=== PATIENT | female | born 1990 | race Hispanic/Latino ===

== ENCOUNTER 2017-11-06 06:10 | Emergency (ER) | payer BC ==
[2017-11-06 06:10] VITALS: BMI 32.1
[2017-11-06 06:15] VITALS: TEMP 98.3
[2017-11-06] MEDS ORDERED: DiphenhydrAMINE 50 mg/ml Inj IVP STA (06:25)
--- NOTE | 2017-11-06 06:25 | C.PDOC ---
History Of Present Illness Patient woke up with both her upper eyelids swollen, almost completely closed. Unknown etiology. Denies any new things -makeup, meds, foods. Speaking in complete sentences. Tolerating po and own secretions Time Seen by Provider: 11/06/17 06:24 Chief Complaint (Nursing): Allergic Reaction History Per: Patient History/Exam Limitations: no limitations Onset/Duration Of Symptoms: Hrs Current Symptoms Are (Timing): Still Present Context: Other Possible Cause: Unknown Associated Symptoms: Swelling. denies: Trouble Swallowing, Dizziness, Itching Home/EMS Treatment: None Severity: Moderate Recent travel outside of the [place]: No Additional History Per: Family Past Medical History Reviewed: Historical Data, Nursing Documentation, Vital Signs Vital Signs: Last Vital Signs Temp 98.3 F 11/06/17 06:13 Pulse 72 11/06/17 06:13 Resp 22 11/06/17 06:13 BP 107/69 11/06/17 06:13 Pulse Ox 100 11/06/17 06:25 - Medical History PMH: Migraine Denies: Chronic Kidney Disease Family History: States: No Known Family Hx - Social History Hx Tobacco Use: No Hx Alcohol Use: No Hx Substance Use: No - Immunization History Hx Tetanus Toxoid Vaccination: No Hx Influenza Vaccination: Yes Hx Pneumococcal Vaccination: No Review Of Systems Constitutional: Negative for: Fever, Chills, Sweats Eyes: Positive for: Other (eyelid edema) ENT: Negative for: Throat Pain, Throat Swelling Cardiovascular: Negative for: Chest Pain Respiratory: Negative for: Shortness of Breath Skin: Positive for: Other (edema b/l eyelids, itchy) Psych: Negative for: Anxiety Physical Exam - Physical Exam Appears: Non-toxic Skin: Warm, Dry Eye(s): bilateral: Other (upper eyelid edema) Nose: Normal Oral Mucosa: Moist Tongue: Normal Appearing Lips: Normal Appearing Throat: No Erythema, No Exudate, No Drooling Neck: Supple Chest: Symmetrical Cardiovascular: Rhythm Regular Respiratory: No Rales, No Rhonchi, No Wheezing Neurological/Psych: Oriented x3 Gait: Steady ED Course And Treatment O2 Sat by Pulse Oximetry: 100 Pulse Ox Interpretation: Normal Disposition Counseled Patient/Family Regarding: Studies Performed, Diagnosis - Disposition Disposition Time: 06:25 Condition: FAIR Forms: LastRoom (Occitan) - Clinical Impression Clinical Impression: Allergic reaction, Eyelid edema Physician Patient Turnover Patient Signed Over To: Maine Taylor Handoff Comments: pending re-eval and dispostion
[2017-11-06] MEDS ORDERED: DiphenhydrAMINE 50 mg/ml Inj ONE (06:26)
[2017-11-06 08:39] VITALS: BP 98/67; PULSE 60; RESP 18; O2SAT 99
== END 2017-11-06 08:55 | disposition home or self-care (01) ==
LOC: C.ER 06:10
DX: T78.40XA Allergy, unspecified, initial encounter (principal); H02.844 Edema of left upper eyelid; H02.841 Edema of right upper eyelid
CPT/HCPCS: 96374; 96375; 99284; J1200; J2930

== ENCOUNTER 2017-11-09 11:01 | Day surgery (SDC) | payer BC ==
[2017-11-04 10:25] VITALS: BMI 32.1
[2017-11-09] MEDS ORDERED: Propofol 10 mg/ml Inj (20 ML) ONE ×2 (15:11→16:43)
[2017-11-09] MEDS ORDERED: Midazolam 2 MG/2 ML VIAL ONE (15:11)
[2017-11-09] MEDS ORDERED: Neostigmine Methylsulfate 3mg/3ml Syringe IV ONE (16:42)
[2017-11-09] MEDS ORDERED: Lactated Ringer's 1,000 ML IV ONE ×2 (17:18→18:30)
[2017-11-09] MEDS ORDERED: Lactated Ringer's 1,000 ML IV SCH (17:30)
[2017-11-09] MEDS ORDERED: DiphenhydrAMINE 50 mg/ml Inj IVP STA (19:04)
[2017-11-09] MEDS ORDERED: DiphenhydrAMINE 50 mg/ml Inj IVP PRN (19:28)
[2017-11-09] MEDS: Lactated Ringer's 1,000 ML IV SCH (20:57)
[2017-11-10] MEDS: Lactated Ringer's 1,000 ML IV SCH (05:08)
[2017-11-10 10:02] VITALS: BP 104/69; PULSE 76; RESP 18; TEMP 98.1; O2SAT 100
--- NOTE | 2017-11-11 06:45 | OP ---
Copied To: Eloise Chang MD Attending MD: Eloise Chang MD PROCEDURE DATE: 11/09/2017 SURGEON: Eloise Chang MD LOCATION: [facility]. PREOPERATIVE DIAGNOSES: Pelvic pain, persistent right ovarian cyst. POSTOPERATIVE DIAGNOSES: Pelvic pain, persistent right ovarian cyst. OPERATIVE PROCEDURES: Diagnostic laparoscopy, right ovarian cystectomy. ANESTHESIA: GETA. FINDINGS: Atraumatic site of entry. All peritoneal surfaces appeared normal. Benign appearing but enlarged right ovary with cyst, mucinous in appearance. Normal-appearing appendix. Hemostasis at the end of the case. DESCRIPTION OF PROCEDURE: The patient was consented and taken to the OR where time-out was performed. She was placed in dorsal lithotomy position. After anesthesia was found to be adequate, she was prepped and draped in the usual sterile fashion. Olivas was placed in the bladder, and the sponge stick was used in the vagina to manipulate the uterus. Attention was then turned to the abdominal portion of the procedure. A Jeny direct entry was used to gain access to the abdomen. Findings were as above. The ovarian stroma was incised with scissors with monopolar cautery. The cyst was dissected and then removed. The ovarian cyst bed was cauterized using a [place] with monopolar cautery. After hemostasis was achieved, the pressure was decreased in the abdomen to ensure hemostasis. Otherwise, the pressure was maintained at 15 mmHg throughout the case. One 5-mm port in the right lower quadrant and two 5-mm ports were placed in the left lower quadrant under direct visualization. FloSeal was placed at the end of the case. The other side of the adnexa was normal in appearance. The gas was allowed to exsufflate. The abdominal incision was closed in a running fashion with Vicryl. The skin was closed with 3-0 Monocryl, Steri-Strips, and dressing. All counts were correct and all instruments were removed from the bladder and the vagina. SPECIMEN: Ovarian cyst. CONDITION: Stable for PACU. Eloise Chang MD
== END 2017-11-10 10:50 | disposition home or self-care (01) ==
LOC: C.SDS 11:01 → C.4M 19:22 → C.SDS 11-10 10:50
PROVIDERS: ATTEND Obstetrics & Gynecology
DX: N83.291 Other ovarian cyst, right side (principal); N94.9 Unspecified condition associated with female genital organs and menstrual cycle; N83.201 Unspecified ovarian cyst, right side
CPT/HCPCS: 36415; 58662; 86850; 86900; 86920; 88305; C2615; J0131; J1100; J1200; J1885; J2001; J2250; J2405; J2704; J2710; J3010; J7120

== ENCOUNTER 2017-12-12 22:10 | Emergency (ER) | payer BC ==
[2017-12-12 22:10] VITALS: BMI 32.1
[2017-12-12 22:19] VITALS: BP 115/75; PULSE 61; TEMP 98.3; O2SAT 100
[2017-12-12] MEDS ORDERED: methylPREDNISolone 125 MG in Sodium Chloride 0.9% 100 ML IV STA (22:34)
[2017-12-12] MEDS ORDERED: DiphenhydrAMINE 50 mg/ml Inj IVP STA (22:34)
[2017-12-12] MEDS ORDERED: DiphenhydrAMINE 50 mg/ml Inj ONE (22:43)
--- NOTE | 2017-12-12 23:45 | C.PDOC ---
History Of Present Illness 27 year old female presents to the ED c/o facial swelling and diffuse urticarial rash since yesterday, that got progressively worse today. Patient was seen in the ED 10/17 for the same symptoms, patient was also seen by e business specialist and had test done. Patient was given topical cream for his body and a solution for her face. Patient reports symptoms still recurrent and worsened. Patient denies fever, chills, SOB, tongue swelling, lip swelling, nausea, vomit. Time Seen by Provider: 12/12/17 22:23 Chief Complaint (Nursing): Allergic Reaction History Per: Patient History/Exam Limitations: no limitations Onset/Duration Of Symptoms: Days, Persistent Current Symptoms Are (Timing): Still Present Associated Symptoms: Skin Rash, Swelling Home/EMS Treatment: Other Severity: None Recent travel outside of the [place]: No Additional History Per: Patient Past Medical History Reviewed: Historical Data, Nursing Documentation, Vital Signs Vital Signs: Last Vital Signs Temp 98.3 F 12/12/17 22:15 Pulse 61 12/12/17 22:15 Resp 16 12/12/17 22:15 BP 115/75 12/12/17 22:15 Pulse Ox 100 12/12/17 22:15 - Medical History PMH: Migraine Denies: Chronic Kidney Disease Surgical History: No Surg Hx Family History: States: Unknown Family Hx - Social History Hx Tobacco Use: No Hx Alcohol Use: No Hx Substance Use: No - Immunization History Hx Tetanus Toxoid Vaccination: No Hx Influenza Vaccination: Yes Hx Pneumococcal Vaccination: No Review Of Systems Constitutional: Negative for: Fever, Chills ENT: Negative for: Mouth Swelling, Throat Swelling Respiratory: Negative for: Cough, Shortness of Breath Gastrointestinal: Negative for: Nausea, Vomiting Skin: Positive for: Rash Neurological: Negative for: Weakness, Numbness Physical Exam - Physical Exam Appears: Non-toxic, No Acute Distress Skin: Normal Color, Warm, Dry, Rash (diffuse urticarial rash, hives) Head: Atraumatic, Normacephalic, Swelling (bilateral infraorbital/maxillary area ) Eye(s): bilateral: Normal Inspection, PERRL, EOMI, Eyelid Inflammation ( bilateral upper eyelid edema) Ear(s): Bilateral: Normal Nose: No Discharge Oral Mucosa: Moist Tongue: No Swelling Lips: No Swelling Throat: Normal, No Erythema, No Exudate Neck: Normal ROM, Supple Chest: Symmetrical Cardiovascular: Rhythm Regular Respiratory: Normal Breath Sounds, No Rales, No Rhonchi, No Wheezing Extremity: Normal ROM, No Tenderness, No Swelling Neurological/Psych: Oriented x3, Normal Speech Gait: Steady ED Course And Treatment O2 Sat by Pulse Oximetry: 100 (ON RA) Pulse Ox Interpretation: Normal Progress Note: Plan: - Benadryl 25 mg IVP. - Pepcid 20 mg IVP. - Solumedrol 125 mg IVP. Patient is resting comfortably, tolerating PO, has no shortness of breath, has no intra-oral swelling, no stridor. Patient notes that pruritus has improved.. Patient was advised to avoid potential allergens, and to follow up with physician in 1-2 days. Disposition - Disposition - PA / MEDICAL SONOGRAPHER / Resident Statement MD/DO has reviewed & agrees with the documentation as recorded. - Scribe Statement The provider has reviewed the documentation as recorded by the Scribe Arcadio Arango All medical record entries made by the Scribe were at my direction and personally dictated by me. I have reviewed the chart and agree that the record accurately reflects my personal performance of the history, physical exam, medical decision making, and the department course for this patient. I have also personally directed, reviewed, and agree with the discharge instructions and disposition.
--- NOTE | 2017-12-12 23:47 | C.PDOC ---
History Of Present Illness 27 year old female presents to the ED c/o facial swelling and diffuse urticarial rash since yesterday, that got progressively worse today. Patient was seen in the ED 10/17 for the same symptoms, patient was also seen by commissioning specialist and had test done. Patient was given topical cream for his body and a solution for her face. Patient reports symptoms still recurrent and worsened. Patient denies fever, chills, SOB, tongue swelling, lip swelling, nausea, vomit. Time Seen by Provider: 12/12/17 22:23 Chief Complaint (Nursing): Allergic Reaction History Per: Patient History/Exam Limitations: no limitations Onset/Duration Of Symptoms: Days Current Symptoms Are (Timing): Still Present Possible Cause: Unknown Associated Symptoms: Skin Rash, Swelling Home/EMS Treatment: Other Recent travel outside of the [place]: No Additional History Per: Patient Past Medical History Reviewed: Historical Data, Nursing Documentation, Vital Signs Vital Signs: Last Vital Signs Temp 98.3 F 12/12/17 22:15 Pulse 61 12/12/17 22:15 Resp 20 12/12/17 23:59 BP 115/75 12/12/17 22:15 Pulse Ox 100 12/12/17 23:54 - Medical History PMH: Migraine Denies: Chronic Kidney Disease Surgical History: No Surg Hx Family History: States: Unknown Family Hx - Social History Hx Tobacco Use: No Hx Alcohol Use: No Hx Substance Use: No - Immunization History Hx Tetanus Toxoid Vaccination: No Hx Influenza Vaccination: Yes Hx Pneumococcal Vaccination: No Review Of Systems Constitutional: Negative for: Fever, Chills Eyes: Positive for: Eyelid Inflammation ENT: Negative for: Mouth Swelling Respiratory: Negative for: Cough, Shortness of Breath Gastrointestinal: Negative for: Nausea, Vomiting Skin: Positive for: Rash Neurological: Negative for: Weakness, Numbness Physical Exam - Physical Exam Appears: Non-toxic, No Acute Distress Skin: Normal Color, Warm, Dry, Rash (diffuse urticarial, hives ) Head: Atraumatic, Normacephalic, Swelling (bilateral infraorbital/maxillary area ) Eye(s): bilateral: Normal Inspection, PERRL, EOMI, Eyelid Inflammation ( bilateral upper eyelid edema) Ear(s): Bilateral: Normal Nose: No Discharge Oral Mucosa: Moist Tongue: No Swelling Lips: No Swelling Throat: Normal, No Erythema, No Exudate, No Drooling Neck: Normal ROM, Supple Chest: Symmetrical Cardiovascular: Rhythm Regular Respiratory: Normal Breath Sounds, No Rales, No Rhonchi, No Wheezing Extremity: Normal ROM, No Swelling Neurological/Psych: Oriented x3, Normal Speech, Normal Cognition Gait: Steady ED Course And Treatment O2 Sat by Pulse Oximetry: 100 (ON RA) Pulse Ox Interpretation: Normal Progress Note: Plan: - Benadryl 25 mg IVP. - Pepcid 20 mg IVP. - Solumedrol 125 mg IVP. Patient is resting comfortably, tolerating PO, has no shortness of breath, has no intra-oral swelling, no stridor. Patient notes that pruritus has improved.. Patient was advised to avoid potential allergens, and to follow up with physician in 1-2 days. Disposition Counseled Patient/Family Regarding: Diagnosis, Need For Followup, Rx Given - Disposition Referrals: Sergio Lomas Jr., MD [Medical Doctor] - Disposition: HOME/ ROUTINE Disposition Time: 23:43 Condition: STABLE Additional Instructions: May take benadryl 25- 5 mg every 6 h Take zyrtec if very drowsy with benadryl take Prednisone as instructed Follow up with surgeon's assistant or PMD Return to ER if difficulty breathing, lip/tongue swelling or worse Prescriptions: DiphenhydrAMINE [Benadryl] 50 mg PO Q6H #20 cap Famotidine [Pepcid] 20 mg PO DAILY #10 tab predniSONE [Prednisone] 40 mg PO DAILY #8 tab Instructions: Hives (DC) Forms: Qustodian (Guamanian) Print Language: BELARUSIAN - Clinical Impression Clinical Impression: Allergic urticaria - PA / BLIND HOOKER / Resident Statement MD/DO has reviewed & agrees with the documentation as recorded. - Scribe Statement The provider has reviewed the documentation as recorded by the Scribe Arcadio Arango All medical record entries made by the Scribe were at my direction and personally dictated by me. I have reviewed the chart and agree that the record accurately reflects my personal performance of the history, physical exam, medical decision making, and the department course for this patient. I have also personally directed, reviewed, and agree with the discharge instructions and disposition.
[2017-12-13] VITALS: RESP 20
== END 2017-12-12 23:58 | disposition home or self-care (01) ==
LOC: C.ER 22:10
DX: L50.0 Allergic urticaria (principal)
CPT/HCPCS: 96374; 96375; 99284; J1200; J2930